=== PATIENT | female | born 1990 | race African-American/Black ===

== ENCOUNTER 2018-05-19 12:20 | Emergency (ER) | payer MEDICAID, OTHER ==
[~2018-05-19] VITALS: Ht 157.5 cm; Wt 73.0 kg
[2018-05-19 13:34] LABS: CLARITY URINE CLEAR (CLEAR); COLOR URINE YELLOW (YELLOW); KETONES URINE NEGATIVE (NEGATIVE); LEUKOCYTE ESTERASE URINE NEGATIVE (NEGATIVE); NITRITE URINE NEGATIVE (NEGATIVE); OCCULT BLOOD URINE 1+ (NEGATIVE); PROTEIN URINE NEGATIVE (NEGATIVE); SPECIFIC GRAVITY URINE 1.023 (1.005-1.030)
[2018-05-19] MEDS ORDERED: ONDANSETRON HCL 4MG/2ML VIAL IV STA (14:18)
[2018-05-19] MEDS ORDERED: SODIUM CHLORIDE 0.9% 1,000 ML IV ONE (14:18)
[2018-05-19] MEDS ORDERED: MAGNESIUM/ALUMINUM HYDROXIDE/SIMETHICONE 30ML UDC PO STA (14:18)
[2018-05-19] MEDS ORDERED: FAMOTIDINE 20MG/2ML VIAL IV STA (14:18)
[2018-05-19] MEDS ORDERED: KETOROLAC 30MG/ML VIAL IV STA (14:18)
[2018-05-19 14:54] LABS: BASOPHILS % 0.6 % (0.0-2.0); EOSINOPHILS % 0.8 % (0.0-5.0); HEMATOCRIT. 37.1 % (36.0-48.0); HEMOGLOBIN. 12.4 g/dL (12.0-16.0); LYMPHOCYTES % 38.5 % (20.0-50.0); MEAN CORPUSCULAR HEMOGLOBIN 28.4 pg (28.0-32.0); MEAN CORPUSCULAR VOLUME 84.9 fL (81.0-99.0); MEAN PLATELET VOLUME 7.4 fl (7.4-10.4); MONOCYTES % 9.1 % (2.0-8.0); PLATELET 255 x1000/uL (130-400); RED BLOOD CELL COUNT 4.37 mill/uL (4.2-5.4); RED CELL DISTRIBUTION WIDTH 16.2 % (11.6-14.6)
[2018-05-19 14:57] LABS: CHLORIDE 106 mEq/L (98-107)
[2018-05-19 15:00] LABS: PROTHROMBIN TIME 10.8 sec (9.4-11.6)
[2018-05-19 15:03] LABS: ETHANOL BLOOD < 10 mg/dL
[2018-05-19 15:14] LABS: HCG SCREEN NEGATIVE
[2018-05-19 17:12] VITALS: BP 134/102
[2018-05-19 23:00] LABS: *AMPHETAMINES SCREEN URINE NEGATIVE (NEGATIVE); *BARBITURATES SCREEN URINE NEGATIVE (NEGATIVE); *COCAINE SCREEN URINE NEGATIVE (NEGATIVE); METHADONE URINE SCREEN NEGATIVE (NEGATIVE); OPIATES URINE SCREEN NEGATIVE (NEGATIVE); PHENCYCLIDINE URINE SCREEN NEGATIVE (NEGATIVE)
[2018-05-19 23:01] LABS: *BENZODIAZEPINES SCREEN URINE NEGATIVE (NEGATIVE)
[2018-05-19 23:02] LABS: CANNABINOID URINE SCREEN PRESUMTIVE POSITIVE (NEGATIVE)
== END 2018-05-19 18:34 | disposition home or self-care (01) ==
LOC: ER 13:09
DX: K80.20 Calculus of gallbladder without cholecystitis without obstruction (principal); K29.70 Gastritis, unspecified, without bleeding; K21.9 Gastro-esophageal reflux disease without esophagitis; I10 Essential (primary) hypertension; Z79.899 Other long term (current) drug therapy
CPT/HCPCS: 36415; 76705; 80053; 80305; 81003; 81025; 83605; 83690; 84484; 84703; 85025; 85610; 96361; 96374; 96375; 99285; G0482; J1885; J2405; J3490; J7030; Z7610